=== PATIENT | male | born 1950 | race Caucasian/White ===

== ENCOUNTER 2018-04-14 18:02 | Emergency (ER) | payer MEDICARE, OTHER ==
[2018-04-14 18:41] VITALS: BP 120/82
--- NOTE | 2018-04-14 19:39 | EDM.PDOC ---
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 - Related Data Allergies Allergy/AdvReac Type Severity Reaction Status Date / Time codeine Allergy Unknown Rash Verified 04/14/18 18:27 Home Meds: Home Meds NK [No Known Home Meds] 02/11/16 [History] Past Medical History - Past Health History Medical/Surgical History: Denies Medical/Surgical History - Infectious Disease History Infectious Disease History: Reports: Chicken Pox - Past Surgical History GI Surgical History: Reports: Cholecystectomy, Hernia, Abdominal, Other (See Below) (colon resection, history of Crohn's disease.) Social & Family History - Tobacco Use Smoking Status *Q: Never Smoker ED ROS GENERAL - Review of Systems Review Of Systems: See Below Constitutional: Denies: Fever, Chills, Malaise, Weakness HEENT: Reports: No Symptoms Respiratory: Reports: No Symptoms Cardiovascular: Reports: No Symptoms Endocrine: Reports: No Symptoms GI/Abdominal: Reports: No Symptoms : Reports: No Symptoms Musculoskeletal: Reports: No Symptoms Skin: Reports: No Symptoms Neurological: Reports: Confusion, Other (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 Wil states he was getting ready to go to a latter-day meeting and he suddenly forgot where the car was that he was suppose to drive. He states he drove to his shop 3 miles away from his home, could not remember why he was at the shop, turned around and drove back home. He states he then called his sons and a friend. His sons are volunteer preload supervisor, completed the NIH stroke scale and it was negative. 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 He denies trauma, injury or changes in vision. ). Denies: Dizziness, Headache, Numbness, Paresthesia, Pre-Existing Deficit, Syncope, Tingling, Trouble Speaking , Difficulty Walking, Weakness, Change in Speech, Gait Disturbance Psychiatric: Reports: Confusion. Denies: Agitation, Anxiety, Depression, Hallucinations Hematologic/Lymphatic: Denies: No Symptoms Immunologic: Denies: No Symptoms ED EXAM, NEURO - Physical Exam Exam: See Below Text/Narrative:: Wil presents today with his two sons for complaints of sudden confusion and memory loss today. Exam Limited By: No Limitations General Appearance: Alert, WD/WN, No Apparent Distress Eye Exam: Bilateral Eye: EOMI, Normal Inspection, PERRL Ears: Normal External Exam, Normal Canal, Hearing Grossly Normal, Normal TMs Nose: Normal Inspection, Normal Mucosa, No Blood Throat/Mouth: Normal Inspection, Normal Lips, Normal Teeth, Normal Gums, Normal Oropharynx, Normal Voice, No Airway Compromise Head Exam: Atraumatic, Normocephalic Neck: Normal Inspection, Supple, Non-Tender, Full Range of Motion. No: Lymphadenopathy (R), Lymphadenopathy (L) Respiratory/Chest: No Respiratory Distress, Lungs Clear, Normal Breath Sounds, No Accessory Muscle Use, Chest Non-Tender Cardiovascular: Normal Peripheral Pulses, No Edema, No Gallop, No Murmur, No Rub , Bradycardia GI/Abdominal: Normal Bowel Sounds, Soft, Non-Tender, No Organomegaly, No Distention Neurological: Alert, Normal Mood/Affect, Normal Dorsiflexion, Normal Plantar Flexion, Normal Gait, Normal Reflexes, No Motor/Sensory Deficits, Oriented x 3 DTR: 2+: Patella (R), Patella (L) Back Exam: Normal Inspection, Full Range of Motion. No: CVA Tenderness (R), CVA Tenderness (L) Extremities: Normal Inspection, Normal Range of Motion, Non-Tender, No Pedal Edema, Normal Capillary Refill Psychiatric: Normal Affect, Normal Mood Skin Exam: Warm, Dry, Intact, Normal Color, No Rash EKG INTERPRETATION EKG Date: 04/14/18 Time: 19:42 Rhythm: NSR Rate (Beats/Min): 56 Mitchell: Normal P-Wave: Present QRS: Normal ST-T: Normal QT: Normal Course - Vital Signs Last Recorded V/S: Last Vital Signs Temp 36.1 C 04/14/18 18:36 Pulse 57 L 04/14/18 18:39 Resp 14 04/14/18 18:39 BP 120/82 04/14/18 18:39 Pulse Ox 97 04/14/18 18:39 - Orders/Labs/Meds Orders: Active Orders 24 hr Category Date Time Status EKG Documentation Completion [RC] ASDIRECTED Care 04/14/18 19:37 Active Head wo Cont [CT] Stat Exams 04/14/18 19:36 Taken UA W/MICROSCOPIC [URIN] Stat Lab 04/14/18 19:53 Ordered EKG 12 Lead [EK] Routine Ther 04/14/18 19:36 Ordered Labs: Laboratory Tests 04/14/18 04/14/18 04/14/18 Range/Units 19:36 19:36 19:49 WBC 5.1 (4.5-11.0) K/uL RBC 4.83 (4.30-5.90) M/uL Hgb 14.1 (12.0-15.0) g/dL Hct 42.6 (40.0-54.0) % MCV 88 (80-98) fL MCH 29 (27-31) pg MCHC 33 (32-36) % Plt Count 164 (150-400) K/uL Neut % (Auto) 54 (36-66) % Lymph % (Auto) 28 (24-44) % Henderson % (Auto) 8 H (2-6) % Eos % (Auto) 9 H (2-4) % Baso % (Auto) 1 (0-1) % Sodium 139 L (140-148) mmol/L Potassium 4.2 (3.6-5.2) mmol/L Chloride 104 (100-108) mmol/L Carbon Dioxide 27 (21-32) mmol/L Anion Gap 12.2 (5.0-14.0) mmol/L BUN 21 H (7-18) mg/dL Creatinine 1.3 (0.8-1.3) mg/dL Est Cr Clr Drug Dosing 56.04 mL/min Estimated GFR (MDRD) 55 L (>60) Glucose 91 (74-106) mg/dL Calcium 8.5 (8.5-10.1) mg/dL Magnesium 1.9 (1.8-2.4) mg/dL Total Bilirubin 0.4 (0.2-1.0) mg/dL AST 29 (15-37) U/L ALT 32 (12-78) U/L Alkaline Phosphatase 97 (46-116) U/L Troponin I < 0.017 (0.000-0.056) ng/mL Total Protein 6.9 (6.4-8.2) g/dL Albumin 3.2 L (3.4-5.0) g/dL Globulin 3.7 H (2.3-3.5) g/dL Albumin/Globulin Ratio 0.9 L (1.2-2.2) TSH, Ultra Sensitive 1.420 (0.358-3.740) uIU/mL Urine Color Urine Appearance Urine pH (4.5-8.0) Ur Specific Phenix (1.008-1.030) Urine Protein (NEGATIVE) mg/dL Urine Glucose (UA) (NEGATIVE) mg/dL Urine Ketones (NEGATIVE) mg/dL Urine Occult Blood (NEGATIVE) Urine Nitrite (NEGAITVE) Urine Bilirubin (NEGATIVE) Urine Urobilinogen (NORMAL) mg/dL Ur Leukocyte Esterase (NEGATIVE) Urine RBC (0-5) Urine WBC (0-5) Ur Epithelial Cells Amorphous Sediment Urine Bacteria Urine Mucus Urine Other 04/14/18 Range/Units 19:53 WBC (4.5-11.0) K/uL RBC (4.30-5.90) M/uL Hgb (12.0-15.0) g/dL Hct (40.0-54.0) % MCV (80-98) fL MCH (27-31) pg MCHC (32-36) % Plt Count (150-400) K/uL Neut % (Auto) (36-66) % Lymph % (Auto) (24-44) % Henderson % (Auto) (2-6) % Eos % (Auto) (2-4) % Baso % (Auto) (0-1) % Sodium (140-148) mmol/L Potassium (3.6-5.2) mmol/L Chloride (100-108) mmol/L Carbon Dioxide (21-32) mmol/L Anion Gap (5.0-14.0) mmol/L BUN (7-18) mg/dL Creatinine (0.8-1.3) mg/dL Est Cr Clr Drug Dosing mL/min Estimated GFR (MDRD) (>60) Glucose (74-106) mg/dL Calcium (8.5-10.1) mg/dL Magnesium (1.8-2.4) mg/dL Total Bilirubin (0.2-1.0) mg/dL AST (15-37) U/L ALT (12-78) U/L Alkaline Phosphatase (46-116) U/L Troponin I (0.000-0.056) ng/mL Total Protein (6.4-8.2) g/dL Albumin (3.4-5.0) g/dL Globulin (2.3-3.5) g/dL Albumin/Globulin Ratio (1.2-2.2) TSH, Ultra Sensitive (0.358-3.740) uIU/mL Urine Color Yellow Urine Appearance Clear Urine pH 5.0 (4.5-8.0) Ur Specific Phenix 1.030 (1.008-1.030) Urine Protein Negative (NEGATIVE) mg/dL Urine Glucose (UA) Normal (NEGATIVE) mg/dL Urine Ketones Negative (NEGATIVE) mg/dL Urine Occult Blood Moderate (NEGATIVE) Urine Nitrite Negative (NEGAITVE) Urine Bilirubin Negative (NEGATIVE) Urine Urobilinogen Normal (NORMAL) mg/dL Ur Leukocyte Esterase Negative (NEGATIVE) Urine RBC 0-5 (0-5) Urine WBC 0-5 (0-5) Ur Epithelial Cells Few Amorphous Sediment Not seen Urine Bacteria Few Urine Mucus Moderate Urine Other - Radiology Interpretation CT Results Date: 04/14/18 (Head CT without contrast - negative for acute findings. ) - Re-Assessments/Exams Free Text/Narrative Re-Assessment/Exam: 04/14/18 20:45 Patient lab work reviewed with him. A TIA cannot be 100% ruled out. He will be discharged to home, take ASA 325mg PO daily and establish care with a primary provider this week. Departure - Departure Time of Disposition: 21:08 Disposition: Home, Self-Care 01 Condition: Good Clinical Impression: Confusion state - Discharge Information *PRESCRIPTION DRUG MONITORING PROGRAM REVIEWED*: Not Applicable *COPY OF PRESCRIPTION DRUG MONITORING REPORT IN PATIENT JUDITH: Not Applicable Referrals: PCP,None [Primary Care Provider] - Forms: ED Department Discharge Additional Instructions: You have been evaluated and treated in the emergency room for confusion and brief memory loss. Episode could have been a TIA. Your head CT was negative for any acute findings. Your lab work does not show any sign of infection. It would be best for you to take an aspirin 325mg by mouth every day with food and a full glass of water to prevent stomach upset. You need to follow up and establish care with a primary provider in the next 3 to 7 days for evaluation. Keep yourself hydrated. Eat a regular diet. Return to the emergency room for worsening, issues or concerns. - My Orders Last 24 Hours: My Active Orders 04/14/18 19:36 Head wo Cont [CT] Stat EKG 12 Lead [EK] Routine 04/14/18 19:37 EKG Documentation Completion [RC] ASDIRECTED 04/14/18 19:53 UA W/MICROSCOPIC [URIN] Stat - Assessment/Plan Last 24 Hours: My Active Orders 04/14/18 19:36 Head wo Cont [CT] Stat EKG 12 Lead [EK] Routine 04/14/18 19:37 EKG Documentation Completion [RC] ASDIRECTED 04/14/18 19:53 UA W/MICROSCOPIC [URIN] Stat Plan: Patient evaluated and treated in the emergency room for confusion and brief memory loss. Episode could have been a TIA. Head CT was negative for any acute findings. Lab work does not show any sign of infection. It would be best for him to take an aspirin 325mg by mouth every day with food and a full glass of water to prevent stomach upset. Need to follow up and establish care with a primary provider in the next 3 to 7 days for evaluation. Keep hydrated. Eat a regular diet. Return to the emergency room for worsening, issues or concerns.
== END 2018-04-14 21:29 | disposition home or self-care (01) ==
LOC: JP.ED 18:02
DX: R41.0 Disorientation, unspecified (principal); Z88.5 Allergy status to narcotic agent
CPT/HCPCS: 36415; 70450; 80053; 81001; 83735; 84443; 84484; 85025; 93005; 99285-25

== ENCOUNTER 2020-06-02 08:04 | Emergency (ER) | payer BC, MEDICARE, OTHER ==
[2020-06-02 08:16] VITALS: BP 145/86; PULSE 66
[2020-06-02] MEDS: HYDROmorphone 0.5 MG/0.5 ML Syringe IM ONE (08:34)
--- NOTE | 2020-06-02 08:51 | EDM.PDOC ---
ED HPI GENERAL MEDICAL PROBLEM - General Chief Complaint: Upper Extremity Injury/Pain Stated Complaint: CUT L RING FINGER Time Seen by Provider: 06/02/20 08:49 Source of Information: Reports: Patient History Limitations: Reports: No Limitations - History of Present Illness INITIAL COMMENTS - FREE TEXT/NARRATIVE: pt was working with a hitch and ended up catching his finger in the hitch. The rick aspect of the finger was removed. He does have the pad with him. This happened with the left ring finger. His ring was removed. Duration: Hour(s): Location: Reports: Upper Extremity, Left Associated Symptoms: Reports: No Other Symptoms, Other (pt is current with his tetanus--2014) Left Finger-Ring Pain Score (Numeric/FACES): 5 - Related Data Allergies Allergy/AdvReac Type Severity Reaction Status Date / Time codeine Allergy Unknown Rash Verified 04/14/18 18:27 Home Meds: Home Meds NK [No Known Home Meds] 02/11/16 [History] Past Medical History - Past Health History Medical/Surgical History: Denies Medical/Surgical History HEENT History: Reports: Impaired Vision Gastrointestinal History: Reports: Chronic Diarrhea Musculoskeletal History: Reports: None Hematologic History: Reports: Blood Transfusion(s) - Infectious Disease History Infectious Disease History: Reports: Chicken Pox - Past Surgical History Head Surgeries/Procedures: Reports: None HEENT Surgical History: Reports: None GI Surgical History: Reports: Cholecystectomy, Colon, Hernia, Abdominal, Other (See Below) Musculoskeletal Surgical History: Reports: Other (See Below) Other Musculoskeletal Surgeries/Procedures:: hip Dermatological Surgical History: Reports: None Social & Family History - Tobacco Use Smoking Status *Q: Former Smoker Used Tobacco, but Quit: Yes Month/Year Tobacco Last Used: 1987 Second Hand Smoke Exposure: No - Caffeine Use Caffeine Use: Reports: Coffee - Recreational Drug Use Recreational Drug Use: No Review of Systems - Review of Systems Review Of Systems: See Below Constitutional: Reports: No Symptoms Eyes: Reports: No Symptoms Ears: Reports: No Symptoms Nose: Reports: No Symptoms Mouth/Throat: Reports: No Symptoms Respiratory: Reports: No Symptoms Cardiovascular: Reports: No Symptoms GI/Abdominal: Reports: No Symptoms Genitourinary: Reports: No Symptoms Musculoskeletal: Reports: Other (pt has a lacerton removing the rick pad from the tip of the left ring finger.) ED EXAM, GENERAL - Physical Exam Exam: See Below Free Text/Narrative:: pt had an incident with the hitching of a trailer and the pad was removed from the tip of the ring finger. He has full funtion of the finger otherwise. He is current with his tetanus. Exam Limited By: No Limitations General Appearance: Alert, Anxious Extremities: Other ( pt has a large portion of the pad of the left ring finger removed from an incident when hitching a trailer. He has the pad wth him. ) Neurological: Alert, Oriented, Normal Cognition Psychiatric: Anxious Course - Vital Signs Last Recorded V/S: Last Vital Signs Temp 36.4 C 06/02/20 08:14 Pulse 66 06/02/20 08:14 Resp 16 06/02/20 08:14 BP 145/86 H 06/02/20 08:14 Pulse Ox 97 06/02/20 08:14 - Orders/Labs/Meds Orders: Active Orders 24 hr Category Date Time Status Bacitracin [Bacitracin Oint 1 GM] Med 06/02/20 10:30 Once 1 dose TOP ONETIME ONE Lidocaine 1% [Xylocaine-MPF 1%] Med 06/02/20 10:30 Once 5 ml INJECT ONETIME ONE Medication Orders Bacitracin (Bacitracin Oint 1 Gm) 1 dose TOP ONETIME ONE Stop: 06/02/20 10:31 Lidocaine HCl (Xylocaine-Mpf 1%) 5 ml INJECT ONETIME ONE Stop: 06/02/20 10:31 Meds: Medications Generic Name Dose Route Start Last Admin Trade Name Freq PRN Reason Stop Dose Admin Bacitracin 1 dose 06/02/20 10:30 Bacitracin Oint 1 Gm TOP 06/02/20 10:31 ONETIME ONE Lidocaine HCl 5 ml 06/02/20 10:30 Xylocaine-Mpf 1% INJECT 06/02/20 10:31 ONETIME ONE Discontinued Medications Generic Name Dose Route Start Last Admin Trade Name Freq PRN Reason Stop Dose Admin Ceftriaxone Sodium 2 gm 06/02/20 10:29 Rocephin IM 06/02/20 10:30 ONETIME ONE Hydromorphone HCl 0.5 mg 06/02/20 08:28 06/02/20 08:34 Dilaudid IM 06/02/20 08:29 0.5 mg ONETIME ONE Administration Lidocaine HCl 20 ml 06/02/20 09:13 Xylocaine 1% INJECT 06/02/20 09:14 ONETIME ONE - Re-Assessments/Exams Free Text/Narrative Re-Assessment/Exam: 06/02/20 10:04 Dr Adams came in and looked at the situation and felt that the flap of sk in should be srwed back on. Departure - Departure Time of Disposition: 10:31 Disposition: Home, Self-Care 01 Condition: Fair Clinical Impression: Laceration - Discharge Information Referrals: PCP,None [Primary Care Provider] - Forms: ED Department Discharge Care Plan Goals: appt with Dr Adams on thur, augmentin and norco was given to the pt bt Dr Adams. He also instructed pt regarding care of the wouind. Sepsis Event Note (ED) - Evaluation Sepsis Screening Result: No Definite Risk - Focused Exam Vital Signs: Vital Signs Temp Pulse Resp BP Pulse Ox 06/02/20 08:14 36.4 C 66 16 145/86 H 97 06/02/20 08:13 36.4 C 66 16 145/86 H 97 - My Orders Last 24 Hours: My Active Orders 06/02/20 10:30 Bacitracin [Bacitracin Oint 1 GM] 1 dose TOP ONETIME ONE Lidocaine 1% [Xylocaine-MPF 1%] 5 ml INJECT ONETIME ONE - Assessment/Plan Last 24 Hours: My Active Orders 06/02/20 10:30 Bacitracin [Bacitracin Oint 1 GM] 1 dose TOP ONETIME ONE Lidocaine 1% [Xylocaine-MPF 1%] 5 ml INJECT ONETIME ONE
[2020-06-02] MEDS: Lidocaine 1% 20 ML MDV INJECT ONE (10:39)
[2020-06-02] MEDS: cefTRIAXone 1 GM Vial IM ONE (10:39)
[2020-06-02] MEDS: Bacitracin Oint 1 GM U/D Packet TOP ONE (10:40)
--- NOTE | 2020-06-03 08:09 | OR ---
DATE OF PROCEDURE: 06/02/2020 SURGEON: Arian Adams MD PROCEDURE: Repair of left #4 finger degloving of finger (free flap replacement). COMPLICATIONS: None. ORNAMENTER: None. INDICATIONS: Pleasant gentleman who underwent a degloving of the pulp and distal aspect of his finger due to a construction injury. RISKS: Risks, benefits, alternatives, and limitations including but not limited to infection, bleeding, the possibility that the graft might fail, septic shock, chronic wounds, chronic pain, and other risks not listed here were explained to the patient. They wished to proceed. PROCEDURE IN DETAIL: The patient was placed in a supine position. The wound was inspected and interrogated first. No foreign material was noted. The muscular layer appeared to be intact. No bone was exposed. No evidence of infection. The skin was then sutured back into place. This area was approximately 1.1 x 0.9 cm. This was then sutured into place, after irrigation and prepping, with multiple 5-0 nylon sutures. The deeper layer was sutured with a small amount of 4-0 Vicryl. Pressure dressings were applied. The patient tolerated the procedure well. Arian Adams MD /[id number]
== END 2020-06-02 10:58 | disposition home or self-care (01) ==
LOC: JP.ED 08:04
DX: S61.215A Laceration without foreign body of left ring finger without damage to nail, initial encounter (principal); Z88.5 Allergy status to narcotic agent; Z87.891 Personal history of nicotine dependence; W26.8XXA Contact with other sharp object(s), not elsewhere classified, initial encounter
CPT/HCPCS: 12041; 96372; 99282; J0696; J1170; J2001

== ENCOUNTER 2021-07-20 09:45 | Emergency (ER) | payer MEDICARE ==
--- NOTE | 2021-07-20 10:43 | EDM.PDOC ---
ED HPI GENERAL MEDICAL PROBLEM - General Chief Complaint: Respiratory Problem Stated Complaint: FEVER AND SOB Time Seen by Provider: 07/20/21 10:25 Source of Information: Reports: Patient History Limitations: Reports: No Limitations - History of Present Illness INITIAL COMMENTS - FREE TEXT/NARRATIVE: 70-year-old male, unvaccinated for Covid, has had symptoms of fatigue, cough for the past 9 days and his was tested positive for Covid earlier. He went into his primary care provider's office today to be tested but felt lightheaded and his blood pressure was low so he was sent to the emergency room. He has not been vomiting, no significant diarrhea. His vitals are now normal but he feels weak and tired and has an occasional cough. Onset: Unknown/Unsure Duration: Day(s): (Symptoms for 9 days) Associated Symptoms: Reports: Cough, Malaise, Shortness of Breath (With activity), Weakness - Related Data Allergies Allergy/AdvReac Type Severity Reaction Status Date / Time codeine Allergy Unknown Rash Verified 07/20/21 10:00 Home Meds: Home Meds NK [No Known Home Meds] 02/11/16 [History] Past Medical History - Past Health History Medical/Surgical History: Denies Medical/Surgical History HEENT History: Reports: Impaired Vision Gastrointestinal History: Reports: Chronic Diarrhea Musculoskeletal History: Reports: None Hematologic History: Reports: Blood Transfusion(s) - Infectious Disease History Infectious Disease History: Reports: Chicken Pox - Past Surgical History Head Surgeries/Procedures: Reports: None GI Surgical History: Reports: Cholecystectomy, Colon, Hernia, Abdominal, Other (See Below) Other GI Surgeries/Procedures: colon surgery Musculoskeletal Surgical History: Reports: Other (See Below) Other Musculoskeletal Surgeries/Procedures:: hip repair Dermatological Surgical History: Reports: None Social & Family History - Tobacco Use Tobacco Use Status *Q: Never Tobacco User - Caffeine Use Caffeine Use: Reports: Coffee - Alcohol Use Days Per Week of Alcohol Use: 4 Number of Drinks Per Day: 2 Total Drinks Per Week: 8 - Recreational Drug Use Recreational Drug Use: No ED ROS GENERAL - Review of Systems Review Of Systems: See Below Constitutional: Reports: Malaise HEENT: Denies: Throat Pain Respiratory: Reports: Shortness of Breath, Cough (With activity) Cardiovascular: Denies: Chest Pain, Palpitations GI/Abdominal: Denies: Abdominal Pain Musculoskeletal: Reports: Muscle Pain (Some generalized body aches) Skin: Reports: No Symptoms Neurological: Denies: Headache ED EXAM, GENERAL - Physical Exam Exam: See Below Exam Limited By: No Limitations General Appearance: Alert, No Apparent Distress Head: Atraumatic Respiratory/Chest: No Respiratory Distress, Lungs Clear Cardiovascular: Regular Rate, Rhythm. No: Tachycardia GI/Abdominal: Soft, Non-Tender Extremities: Normal Inspection Neurological: Alert, Oriented Psychiatric: Flat Affect Skin Exam: Warm, Dry Course - Vital Signs Last Recorded V/S: Last Vital Signs Temp 96.3 F L 07/20/21 09:59 Pulse 65 07/20/21 12:30 Resp 18 07/20/21 09:59 BP 109/71 07/20/21 12:30 Pulse Ox 96 07/20/21 12:30 - Orders/Labs/Meds Labs: Laboratory Tests 07/20/21 Range/Units 10:49 SARS-CoV-2 RNA (ABDI) Positive H (NEGATIVE) Meds: Medications Discontinued Medications Generic Name Dose Route Start Last Admin Trade Name Freq PRN Reason Stop Dose Admin Acetaminophen 650 mg 07/20/21 12:30 Acetaminophen 325 Mg Tab PO ONETIME PRN HEADACHE,CHILLS Diphenhydramine HCl 50 mg 07/20/21 12:30 Diphenhydramine 50 Mg/Ml Sdv IVPUSH ONETIME PRN ALLERGIC RXN Epinephrine HCl 0.3 mg 07/20/21 12:30 Epinephrine 1 Mg/Ml Sdv IM ONETIME PRN ALLERGIC RXN Famotidine 20 mg 07/20/21 12:30 Famotidine 20 Mg/2 Ml Sdv IV ONETIME PRN ALLERGIC RXN Bamlanivimab 700 mg/ 160 mls @ 310 mls/hr 07/20/21 12:30 07/20/21 13:06 Etesevimab 1,400 mg/ Sodium IV 07/20/21 13:00 310 mls/hr Chloride ONETIME ONE Administration Methylprednisolone Sodium Succinate 125 mg 07/20/21 12:30 Methylprednisolone Sodium Succinate 125 Mg/2 Ml Sdv IVPUSH ONETIME PRN ALLERGIC RXN - Re-Assessments/Exams Free Text/Narrative Re-Assessment/Exam: 07/20/21 10:42 Covid test was collected and is pending. 07/20/21 11:22 Covid was positive, patient is being prepared for monoclonal antibody therapy Departure - Departure Time of Disposition: 15:07 Disposition: Home, Self-Care 01 Clinical Impression: COVID-19 - Discharge Information Instructions: COVID-19 Referrals: Monique Barclay MD [Primary Care Provider] - Forms: ED Department Discharge Care Plan Goals: Increase activity as tolerated, stay hydrated, and recheck if worsening especially difficulty breathing. Sepsis Event Note (ED) - Evaluation Sepsis Screening Result: No Definite Risk - Focused Exam Vital Signs: Vital Signs Temp Pulse Resp BP Pulse Ox 07/20/21 12:30 65 109/71 96 07/20/21 11:26 64 102/69 95 07/20/21 09:59 96.3 F L 59 L 18 121/73 95
[2021-07-20] MEDS ORDERED: methylPREDNISolone Sodium Succinate 125 MG/2 ML SDV IVPUSH PRN (12:30)
[2021-07-20] MEDS ORDERED: diphenhydrAMINE 50 MG/ML SDV IVPUSH PRN (12:30)
[2021-07-20] MEDS ORDERED: Bamlanivimab 700 MG, ETESEVIMAB 1,400 MG in Sodium Chloride 0.9% 100 ML IV ONE (12:30)
[2021-07-20] MEDS ORDERED: Acetaminophen 325 MG Tab PO PRN (12:30)
[2021-07-20] MEDS ORDERED: EPINEPHrine 1 MG/ML SDV IM PRN (12:30)
[2021-07-20] MEDS ORDERED: Famotidine 20 MG/2 ML SDV IV PRN (12:30)
[2021-07-20 12:34] VITALS: BP 109/71; PULSE 65
== END 2021-07-20 15:00 | disposition home or self-care (01) ==
LOC: JP.ED 09:45
DX: U07.1 COVID-19 (principal); Z88.5 Allergy status to narcotic agent
CPT/HCPCS: 99284; M0245; Q0245; U0002